=== PATIENT | female | born 1990 | race African-American/Black ===

== ENCOUNTER 2017-03-07 22:17 | Emergency (ER) | payer OTHER ==
[~2017-03-07] VITALS: Ht 165.1 cm; Wt 61.2 kg
[~2017-03-07 22:17] MED LIST: HYDR-3326 PO
[2017-03-07 22:40] VITALS: BP 104/65
[2017-03-07] MEDS ORDERED: LIDOCAINE VISCOUS 2% UD 15 ML UDC ONE (23:56)
[2017-03-08] MEDS ORDERED: LIDOCAINE VISCOUS 2% UD 15 ML UDC MM ONE
== END 2017-03-08 00:05 | disposition home or self-care (01) ==
LOC: ER 22:21
DX: J06.9 Acute upper respiratory infection, unspecified (principal); J45.909 Unspecified asthma, uncomplicated
CPT/HCPCS: 99283; A4606; Z7610

== ENCOUNTER 2017-04-11 16:08 | Emergency (ER) | payer OTHER ==
[~2017-04-11] VITALS: Ht 165.1 cm; Wt 61.2 kg
[2017-04-11 16:08] VITALS: BP 112/82
[2017-04-11] MEDS ORDERED: KETOROLAC TROMETHAMINE INJ 60 MG/2 ML VIAL IM ONE (16:30)
[2017-04-11] MEDS ORDERED: KETOROLAC TROMETHAMINE INJ 30 MG/ML VIAL ONE (16:37)
== END 2017-04-11 16:47 | disposition home or self-care (01) ==
LOC: ER 16:10
DX: M54.5 Low back pain (principal); J45.909 Unspecified asthma, uncomplicated; Z98.890 Other specified postprocedural states
CPT/HCPCS: 96372; 99283; A4606; J1885; Z7610

== ENCOUNTER 2018-02-02 01:45 | Emergency (ER) | payer MEDICAID, OTHER ==
[~2018-02-02] VITALS: Ht 167.6 cm; Wt 61.2 kg
[~2018-02-02 01:45] MED LIST changes: -HYDR-3326 PO; +HYDR-3974 PO
--- NOTE | 2018-02-02 02:24 | NUR ---
PT BIBSELF C/O MIGRAINE +NAUSEA X 1 DAY. PT AOX3 RR EVEN AND UNLABORED. NO SOB NOTED. NAD NOTED. NO NVD AT THIS TIME. PT GOWNED AND PLACED ON MONITOR WAITING FOR MD SILVERIO.
[2018-02-02] MEDS ORDERED: ONDANSETRON HCL/PF 4 MG/2 ML VIAL ONE (02:49)
[2018-02-02] MEDS ORDERED: HYDROMORPHONE INJ 2 MG/ML DISP.SYRIN IV ONE (03:00)
[2018-02-02] MEDS ORDERED: ONDANSETRON HCL/PF 4 MG/2 ML VIAL IVP ONE (03:00)
[2018-02-02] MEDS ORDERED: HYDROMORPHONE INJ 2 MG/ML DISP.SYRIN ONE ×2 (03:01→04:22)
--- NOTE | 2018-02-02 03:10 | NUR ---
PER MARIANA SANTAMARIA RECEIVED DILAUDID 2MG IV FROM [facility], 1MG DILAUDID WASTED WITH MARIANA DANIEL.
[2018-02-02] MEDS ORDERED: diphenhydrAMINE HCL 50 MG/ML VIAL ONE (04:25)
--- NOTE | 2018-02-02 04:26 | NUR ---
RECEIVED DILAUDID 2MG IV FROM [facility], WASTED 1.5MG IV DILAUDID WITH MARIANA DANIEL. ORDERS TO GIVE IVP DILAUDID 0.5MG
[2018-02-02] MEDS ORDERED: diphenhydrAMINE HCL 50 MG/ML VIAL IV ONE (04:30)
[2018-02-02] MEDS ORDERED: HYDROMORPHONE 1 MG/1 ML DISP.SYRIN IV ONE (04:30)
--- NOTE | 2018-02-02 04:39 | NUR ---
IV removed. Catheter intact and site benign. Pressure and 4x4 applied to site. No bleeding noted. Patient discharged to home in stable condition. Written and verbal after care instructions given. Patient verbalizes understanding of instruction. ambulatory with a steady gait. instructed pt not to drive,. pt verbalize understanding.
[2018-02-02 04:40] VITALS: BP 110/75
== END 2018-02-02 04:40 | disposition home or self-care (01) ==
LOC: ER 01:49
DX: R51 Headache (principal); R11.0 Nausea; J45.909 Unspecified asthma, uncomplicated
CPT/HCPCS: 96374; 96375; 96376; 99284; A4606; J1170 ×2; J1200; J2405; Z7610

== ENCOUNTER 2018-04-13 01:37 | Emergency (ER) | payer OTHER ==
[~2018-04-13] VITALS: Ht 165.1 cm; Wt 61.2 kg
--- NOTE | 2018-04-13 02:15 | NUR ---
PT BB SELF FROM HOME C/O migraine/ throat pain since 8p, -N/V/D, + SENSITIVITY TO LIGHT, -DIZZINESS. PT IS AAOX4. SKIN WNL. RESP EVEN AND UNLABORED. NO S/S OF DISTRESS NOTED. VSS. PT RESTING IN BED. 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
[2018-04-13] MEDS ORDERED: IV NS 0.9% 1,000 ML BAG IV ONE (03:00)
[2018-04-13] MEDS ORDERED: SUMATRIPTAN SUCCINATE 6 MG/0.5 ML VIAL SQ ONE ×2 (03:00→03:06)
[2018-04-13] MEDS ORDERED: METOCLOPRAMIDE HCL 10 MG/2 ML VIAL IV ONE (03:00)
[2018-04-13] MEDS ORDERED: METOCLOPRAMIDE HCL 10 MG/2 ML VIAL ONE (03:06)
--- NOTE | 2018-04-13 04:20 | NUR ---
Patient discharged to home in stable condition. Written and verbal after care instructions given. Patient verbalizes understanding of instruction.IV removed. Catheter intact and site benign. Pressure and 4x4 applied to site. No bleeding noted. VSS upon discharge
[2018-04-13 04:22] VITALS: BP 112/84
== END 2018-04-13 04:24 | disposition home or self-care (01) ==
LOC: ER 01:43
DX: G43.909 Migraine, unspecified, not intractable, without status migrainosus (principal); J45.909 Unspecified asthma, uncomplicated; F10.10 Alcohol abuse, uncomplicated
CPT/HCPCS: A4606; J2765; J3030; J7030; Z7610

== ENCOUNTER 2018-05-15 16:39 | Emergency (ER) | payer OTHER ==
[~2018-05-15] VITALS: Ht 165.1 cm; Wt 59.0 kg
[2018-05-15 17:12] VITALS: BP 108/71
== END 2018-05-15 17:44 | disposition home or self-care (01) ==
LOC: ER 16:43
DX: B37.3 Candidiasis of vulva and vagina (principal); J45.909 Unspecified asthma, uncomplicated; F10.10 Alcohol abuse, uncomplicated; G43.909 Migraine, unspecified, not intractable, without status migrainosus; Z98.890 Other specified postprocedural states; Y90.9 Presence of alcohol in blood, level not specified
CPT/HCPCS: 99283; A4606; Z7610

== ENCOUNTER 2018-12-11 12:34 | Emergency (ER) | payer SELFPAY ==
[~2018-12-11] VITALS: Ht 165.1 cm; Wt 65.8 kg
--- NOTE | 2018-12-11 12:34 | NUR ---
PT BIBSELF C/O DIFFUSE ABDOMINAL PAIN, NAUSEA AND VOMITING SINCE THIS AM; PT AAOX4, RESPIRATIONS EVEN AND UNLABORED, NO SOB, NAD NOTED, VSS, PT ON MONITOR, AWAITING ER PROVIDER EVAL
[2018-12-11] MEDS ORDERED: ONDANSETRON HCL/PF 4 MG/2 ML VIAL IVP ONE (13:00)
[2018-12-11] MEDS ORDERED: HYDROMORPHONE INJ 2 MG/ML DISP.SYRIN IV ONE (13:00)
[2018-12-11] MEDS ORDERED: FAMOTIDINE/PF INJ 20 MG/2 ML VIAL IV ONE ×2 (13:00→13:27)
[2018-12-11] MEDS ORDERED: IV NS 0.9% 1,000 ML BAG IV ONE (13:00)
[2018-12-11 13:13] LABS: BASOPHILS % (AUTO) 0.2 % (0.0-2.0); EOSINOPHILS % (AUTO) 0.6 % (0.0-6.0); HEMATOCRIT 43 % (33-45); HEMOGLOBIN 14.7 g/dL (11.5-14.8); LYMPHOCYTES # (AUTO) 0.7 /CMM (0.8-4.8); LYMPHOCYTES % (AUTO) 5.8 % (20.0-44.0); MEAN CORPUSCULAR HGB CONC 34 g/dl (31.0-36.0); MEAN CORPUSCULAR VOLUME 79 fL (82-100); MONOCYTES # (AUTO) 0.6 /CMM (0.1-1.30); MONOCYTES % (AUTO) 5.4 % (2.0-12.0); NEUTROPHILS # (AUTO) 10.3 /CMM (1.8-8.9); PLATELET COUNT (AUTO) 192 /CMM (150-450); RED BLOOD CELL COUNT(AUTO) 5.46 MIL/uL (4.0-5.2); WHITE BLOOD COUNT (AUTO) 11.7 K/uL (4.3-11.0)
[2018-12-11 13:20] LABS: CARBON DIOXIDE 28 mmol/L (21-32); CHLORIDE 105 mmol/L (98-107); POTASSIUM 4.1 mmol/L (3.5-5.1); SODIUM SERUM 137 mmol/L (136-145)
[2018-12-11 13:21] LABS: CALCIUM, SERUM 8.4 mg/dL (8.5-10.1); CREATININE 0.7 mg/dL (0.6-1.3); GLUCOSE 87 mg/dL (74-106); UREA NITROGEN, BLOOD 12 mg/dL (7-18)
[2018-12-11 13:24] LABS: APPEARANCE,URINE Clear (CLEAR); BILIRUBIN,URINE Negative (NEGATIVE); BLOOD, URINE Small Ery/uL (NEGATIVE); COLOR,URINE Yellow (YELLOW); KETONES,URINE Negative (NEGATIVE); LEUKOCYTE ESTERASE ,URINE Trace (NEGATIVE); NITRITE, URINE Negative (NEGATIVE); PROTEIN,URINE Trace mg/dl (NEGATIVE); UGLUCOSE Negative (NEGATIVE); UROBILINOGEN,URINE 0.2 EU/dL (0.2)
[2018-12-11] MEDS ORDERED: ONDANSETRON HCL/PF 4 MG/2 ML VIAL ONE (13:26)
[2018-12-11] MEDS ORDERED: HYDROMORPHONE INJ 2 MG/ML DISP.SYRIN ONE (13:27)
[2018-12-11 13:30] LABS: BACTERIA,URINE Few /HPF (None Seen)
[2018-12-11 13:31] LABS: SQUAMOUS EPITHELIAL CELL,UR Few /HPF (None Seen)
[2018-12-11 13:35] LABS: ALANINE AMINOTRANSFERASE 18 U/L (12-78); ALBUMIN 3.9 g/dL (3.4-5.0); ALKALINE PHOSPHATASE 80 U/L (46-116); ASPARTATE AMINOTRANSFERASE 16 U/L (15-37); BILIRUBIN,DIRECT 0.2 mg/dL (0.0-0.2); BILIRUBIN,TOTAL 0.8 mg/dL (0.2-1.0); LIPASE 104 U/L (73-393); TOTAL PROTEIN, SERUM 7.5 g/dL (6.4-8.2)
--- NOTE | 2018-12-11 13:45 | NUR ---
pt back from ct
--- NOTE | 2018-12-11 13:47 | NUR ---
DILAUDID 2MG IVP GIVEN, AVAILABLE MED DILAUDID 4MG, WASTED 2MG WITH MARIANA TORRE
[2018-12-11] MEDS ORDERED: KETOROLAC TROMETHAMINE INJ 30 MG/ML VIAL ONE (14:34)
[2018-12-11 14:41] VITALS: BP 110/66
--- NOTE | 2018-12-11 14:41 | NUR ---
Patient discharged to home in stable condition. Written and verbal after care instructions given. Patient verbalizes understanding of instruction. IV removed. Catheter intact and site benign. Pressure and 4x4 applied to site. No bleeding noted.
[2018-12-11] MEDS ORDERED: KETOROLAC TROMETHAMINE INJ 30 MG/ML VIAL IV ONE (15:00)
== END 2018-12-11 14:56 | disposition home or self-care (01) ==
LOC: ER 12:38
DX: R10.13 Epigastric pain (principal); R10.11 Right upper quadrant pain; R11.10 Vomiting, unspecified; J45.909 Unspecified asthma, uncomplicated; G43.909 Migraine, unspecified, not intractable, without status migrainosus; Z98.890 Other specified postprocedural states
CPT/HCPCS: 36415; 80048-TC; 80076-TC; 81000-TC; 83690-TC; 84484-TC; 84702-TC; 84703-TC; 85025-TC; 85730-TC; J1170; J1885; J2405; J3490; J7030

== ENCOUNTER 2019-02-13 22:49 | Emergency (ER) | payer MEDICAID ==
[~2019-02-13] VITALS: Ht 165.1 cm; Wt 70.8 kg
--- NOTE | 2019-02-14 00:05 | NUR ---
BIBSELF FROM HOME C/O LOWER ABD PAIN; PT AAOX4, PT ON MONITOR, VSS, NAD NOTED, PENDING MD SILVERIO
[2019-02-14] MEDS: HYDROCODONE/APAP 5/325MG 1 EACH TABLET PO ONE (01:00)
[2019-02-14] MEDS: LORAZEPAM 1 MG TABLET PO ONE (01:00)
[2019-02-14] MEDS ORDERED: HYDROCODONE/APAP 5/325MG 1 EACH TABLET ONE (01:01)
[2019-02-14] MEDS ORDERED: LORAZEPAM 1 MG TABLET ONE (01:01)
[2019-02-14 02:25] VITALS: BP 110/65
== END 2019-02-14 02:29 | disposition home or self-care (01) ==
LOC: ER 22:53
DX: R10.2 Pelvic and perineal pain (principal); F41.9 Anxiety disorder, unspecified; G43.909 Migraine, unspecified, not intractable, without status migrainosus; J45.909 Unspecified asthma, uncomplicated; F10.10 Alcohol abuse, uncomplicated; Y90.9 Presence of alcohol in blood, level not specified; Z98.890 Other specified postprocedural states
CPT/HCPCS: 76856-TC

== ENCOUNTER 2019-09-26 11:16 | Emergency (ER) | payer MEDICAID, OTHER ==
[~2019-09-26] VITALS: Ht 165.1 cm; Wt 61.2 kg
--- NOTE | 2019-09-26 11:25 | NUR ---
"RIGHT SIDED ABDOMINAL PAIN SINCE THIS MORNING ASSOCIATED WITH NAUSEA/ VOMITING AND DIARRHEA" pt aaox4, -sob, nad noted, vss ,pending md crawford
[2019-09-26] MEDS ORDERED: ONDANSETRON HCL/PF 4 MG/2 ML VIAL ONE (13:26)
[2019-09-26 13:29] LABS: BASOPHILS % (AUTO) 0.5 % (0.0-2.0); EOSINOPHILS % (AUTO) 0.7 % (0.0-6.0); HEMATOCRIT 44 % (33-45); LYMPHOCYTES # (AUTO) 1.8 /CMM (0.8-4.8); LYMPHOCYTES % (AUTO) 25.1 % (20.0-44.0); MEAN CORPUSCULAR HGB CONC 34 g/dl (31.0-36.0); MEAN CORPUSCULAR VOLUME 80 fL (82-100); MONOCYTES # (AUTO) 0.6 /CMM (0.1-1.30); MONOCYTES % (AUTO) 7.6 % (2.0-12.0); NEUTROPHILS # (AUTO) 4.8 /CMM (1.8-8.9); NEUTROPHILS % (AUTO) 66.1 % (43.0-81.0); PLATELET COUNT (AUTO) 174 /CMM (150-450); RED BLOOD CELL COUNT(AUTO) 5.54 MIL/uL (4.0-5.2); WHITE BLOOD COUNT (AUTO) 7.2 K/uL (4.3-11.0)
[2019-09-26] MEDS ORDERED: ONDANSETRON HCL/PF 4 MG/2 ML VIAL IVP ONE (13:30)
[2019-09-26] MEDS ORDERED: IV NS 0.9% 1,000 ML BAG IV ONE (13:30)
[2019-09-26 13:38] LABS: CALCIUM, SERUM 8.7 mg/dL (8.5-10.1); CREATININE 0.7 mg/dL (0.6-1.3); POTASSIUM 3.5 mmol/L (3.5-5.1)
[2019-09-26 13:43] LABS: ALBUMIN 4.2 g/dL (3.4-5.0); BILIRUBIN,DIRECT 0.2 mg/dL (0.0-0.2); BILIRUBIN,TOTAL 0.8 mg/dL (0.2-1.0); TOTAL PROTEIN, SERUM 7.8 g/dL (6.4-8.2)
[2019-09-26 13:51] LABS: APPEARANCE,URINE Clear (CLEAR); BILIRUBIN,URINE Negative (NEGATIVE); BLOOD, URINE Trace-intact Ery/uL (NEGATIVE); COLOR,URINE Yellow (YELLOW); KETONES,URINE Negative (NEGATIVE); LEUKOCYTE ESTERASE ,URINE Negative (NEGATIVE); NITRITE, URINE Negative (NEGATIVE); PROTEIN,URINE Trace mg/dl (NEGATIVE); UGLUCOSE Negative (NEGATIVE); UROBILINOGEN,URINE 0.2 EU/dL (0.2)
[2019-09-26] MEDS ORDERED: KETOROLAC TROMETHAMINE INJ 30 MG/ML VIAL ONE (13:51)
[2019-09-26] MEDS ORDERED: LORAZEPAM INJ 2 MG/ML VIAL ONE (13:51)
[2019-09-26 13:52] LABS: BACTERIA,URINE Few /HPF (None Seen); SQUAMOUS EPITHELIAL CELL,UR Few /HPF (None Seen); WBC,URINE 0-2 /HPF (0-3)
[2019-09-26] MEDS ORDERED: LORAZEPAM INJ 2 MG/ML VIAL IV ONE (14:00)
[2019-09-26] MEDS ORDERED: KETOROLAC TROMETHAMINE INJ 30 MG/ML VIAL IV ONE (14:00)
[2019-09-26] MEDS ORDERED: TAMSULOSIN 0.4 MG CAP.SR.24H PO ONE (16:00)
[2019-09-26] MEDS ORDERED: TAMSULOSIN 0.4 MG CAP.SR.24H ONE (16:15)
[2019-09-26 16:19] VITALS: BP 120/60
--- NOTE | 2019-09-26 16:19 | NUR ---
Patient discharged to home in stable condition. Written and verbal after care instructions given. Patient verbalizes understanding of instruction.IV removed. Catheter intact and site benign. Pressure and 4x4 applied to site. No bleeding noted.
== END 2019-09-26 16:20 | disposition home or self-care (01) ==
LOC: ER 11:18
DX: R10.31 Right lower quadrant pain (principal); R11.2 Nausea with vomiting, unspecified; E86.0 Dehydration; R31.9 Hematuria, unspecified; G43.909 Migraine, unspecified, not intractable, without status migrainosus; J45.909 Unspecified asthma, uncomplicated; F10.10 Alcohol abuse, uncomplicated; Z98.890 Other specified postprocedural states; Z30.430 Encounter for insertion of intrauterine contraceptive device; Z79.899 Other long term (current) drug therapy
CPT/HCPCS: 36415; 76770; 76856; 80048; 80076; 81001; 84703; 85025; 96361; 96374; 96375; 99284; J1885; J2060; J2405; J7030; 81000-TC

== ENCOUNTER 2020-05-05 20:23 | Emergency (ER) | payer OTHER ==
[~2020-05-05] VITALS: Ht 165.1 cm; Wt 61.2 kg
--- NOTE | 2020-05-05 20:50 | NUR ---
URINE COLLECTED AND SENT TO LAB
[2020-05-05 21:07] LABS: APPEARANCE,URINE Clear (CLEAR); BILIRUBIN,URINE SMALL (NEGATIVE); BLOOD, URINE Small Ery/uL (NEGATIVE); COLOR,URINE Yellow (YELLOW); KETONES,URINE 15 (NEGATIVE); LEUKOCYTE ESTERASE ,URINE Negative (NEGATIVE); NITRITE, URINE Negative (NEGATIVE); PROTEIN,URINE Negative (NEGATIVE); UGLUCOSE Negative (NEGATIVE)
[2020-05-05] MEDS ORDERED: diphenhydrAMINE HCL 50 MG/ML VIAL ONE (21:23)
[2020-05-05] MEDS ORDERED: METOCLOPRAMIDE HCL 10 MG/2 ML VIAL ONE (21:23)
[2020-05-05] MEDS ORDERED: diphenhydrAMINE HCL 50 MG/ML VIAL IV ONE (21:30)
[2020-05-05] MEDS ORDERED: METOCLOPRAMIDE HCL 10 MG/2 ML VIAL IV ONE (21:30)
[2020-05-05] MEDS ORDERED: IV NS 0.9% 1,000 ML BAG IV ONE (21:30)
[2020-05-05 21:32] LABS: BASOPHILS % (AUTO) 0.4 % (0.0-2.0); EOSINOPHILS % (AUTO) 0.5 % (0.0-6.0); HEMATOCRIT 40 % (33-45); HEMOGLOBIN 13.7 g/dL (11.5-14.8); LYMPHOCYTES # (AUTO) 2.1 /CMM (0.8-4.8); LYMPHOCYTES % (AUTO) 21.7 % (20.0-44.0); MEAN CORPUSCULAR HGB CONC 34 g/dl (31.0-36.0); MEAN CORPUSCULAR VOLUME 80 fL (82-100); MONOCYTES # (AUTO) 0.8 /CMM (0.1-1.30); MONOCYTES % (AUTO) 7.9 % (2.0-12.0); NEUTROPHILS # (AUTO) 6.8 /CMM (1.8-8.9); NEUTROPHILS % (AUTO) 69.5 % (43.0-81.0); PLATELET COUNT (AUTO) 178 /CMM (150-450); RED BLOOD CELL COUNT(AUTO) 5.04 MIL/uL (4.0-5.2); WHITE BLOOD COUNT (AUTO) 9.8 K/uL (4.3-11.0)
[2020-05-05 21:41] LABS: CALCIUM, SERUM 8.7 mg/dL (8.5-10.1); CREATININE 0.8 mg/dL (0.6-1.3); POTASSIUM 3.2 mmol/L (3.5-5.1)
[2020-05-05 21:47] LABS: ALBUMIN 3.6 g/dL (3.4-5.0); BILIRUBIN,DIRECT 0.2 mg/dL (0.0-0.2); BILIRUBIN,TOTAL 1.2 mg/dL (0.2-1.0); TOTAL PROTEIN, SERUM 6.7 g/dL (6.4-8.2)
[2020-05-05 21:48] LABS: BACTERIA,URINE Rare /HPF (None Seen); SQUAMOUS EPITHELIAL CELL,UR Few /HPF (None Seen); WBC,URINE NONE SEEN /HPF (0-3)
[2020-05-05] MEDS ORDERED: POTASSIUM CHLORIDE 20 MEQ TAB.PRT.SR PO ONE ×2 (22:00→22:05)
--- NOTE | 2020-05-05 22:44 | NUR ---
IV removed. Catheter intact and site benign. Pressure and 4x4 applied to site. No bleeding noted. Patient discharged to home in stable condition. Written and verbal after care instructions given. Patient verbalizes understanding of instruction AND RX. PT AMBULATED OUT TO THE LOBBY WITH A STEADY GAIT. VSS.
[2020-05-05 22:51] VITALS: BP 112/74
== END 2020-05-05 22:54 | disposition home or self-care (01) ==
LOC: ER 20:25
DX: R11.2 Nausea with vomiting, unspecified (principal); F12.90 Cannabis use, unspecified, uncomplicated; E87.6 Hypokalemia; E80.4 Gilbert syndrome; G43.909 Migraine, unspecified, not intractable, without status migrainosus; J45.909 Unspecified asthma, uncomplicated; Z98.890 Other specified postprocedural states
CPT/HCPCS: 36415; 80048; 80076; 81001; 83690; 84703; 85025; 96361; 96374; 96375; 99284; J1200; J2765; J7030; 81000-TC

== ENCOUNTER 2022-11-07 13:03 | Emergency (ER) | payer OTHER ==
[~2022-11-07] VITALS: Ht 167.6 cm; Wt 72.6 kg
--- NOTE | 2022-11-07 14:00 | NUR ---
BIBS C/O FLU SX OF SORETHROAT/NAUSEA AND VOMITING X 2 DAYS. AMBULATORY, PLACED ON BED, BREATHING EVEN AND UNLABORED SATURATING AT 100%RA.
[2022-11-07] MEDS ORDERED: ACETAMINOPHEN 325 MG TABLET PO ONE (14:30)
[2022-11-07] MEDS ORDERED: ACETAMINOPHEN 325 MG TABLET ONE (14:30)
--- NOTE | 2022-11-07 14:34 | NUR ---
SWAB FOR CIVID19 AND RAPID INFLUENZA SENT TO LAB
[2022-11-07] MEDS ORDERED: ONDANSETRON HCL/PF - ER 4 MG/2 ML VIAL IV ONE (15:00)
[2022-11-07] MEDS ORDERED: ALBUTEROL FS 2.5 MG/3 ML VIAL.NEB CONTNEB ONE (15:00)
[2022-11-07] MEDS ORDERED: IV NS 0.9% 1,000 ML IV ONE (15:00)
[2022-11-07] MEDS ORDERED: predniSONE 20 MG TABLET PO ONE (15:00)
[2022-11-07] MEDS ORDERED: IPRATROPIUM NEB FS 0.5 MG/2.5 ML AMPUL.NEB NEB ONE (15:00)
--- NOTE | 2022-11-07 15:06 | NUR ---
BLOOD DRAWN AND SENT TO LAB
[2022-11-07] MEDS ORDERED: ONDANSETRON HCL/PF 4 MG/2 ML VIAL ONE (15:10)
[2022-11-07] MEDS ORDERED: predniSONE 20 MG TABLET ONE (15:11)
[2022-11-07 15:21] LABS: BASOPHILS % (AUTO) 0.3 % (0.0-2.0); EOSINOPHILS % (AUTO) 0.2 % (0.0-6.0); HEMATOCRIT 43 % (33-45); HEMOGLOBIN 14.5 g/dL (11.5-14.8); LYMPHOCYTES # (AUTO) 0.8 K/uL (0.8-4.8); LYMPHOCYTES % (AUTO) 18.3 % (20.0-44.0); MEAN CORPUSCULAR HGB CONC 34 g/dl (31.0-36.0); MEAN CORPUSCULAR VOLUME 78 fL (82-100); MONOCYTES # (AUTO) 0.8 K/uL (0.1-1.30); MONOCYTES % (AUTO) 17.8 % (2.0-12.0); NEUTROPHILS # (AUTO) 2.9 K/uL (1.8-8.9); NEUTROPHILS % (AUTO) 63.4 % (43.0-81.0); PLATELET COUNT (AUTO) 159 K/uL (150-450); RED BLOOD CELL COUNT(AUTO) 5.52 MIL/uL (4.0-5.2); WHITE BLOOD COUNT (AUTO) 4.6 K/uL (4.3-11.0)
[2022-11-07] MEDS ORDERED: ALBUTEROL FS 2.5 MG/0.5 ML VIAL.NEB ONE (15:30)
[2022-11-07] MEDS ORDERED: IPRATROPIUM NEB FS 0.5 MG/2.5 ML AMPUL.NEB ONE (15:31)
[2022-11-07 15:39] LABS: CALCIUM, SERUM 8.2 mg/dL (8.5-10.1); CREATININE 0.8 mg/dL (0.6-1.3); POTASSIUM 3.9 mmol/L (3.5-5.1)
[2022-11-07 15:45] LABS: ALBUMIN 3.6 g/dL (3.4-5.0); BILIRUBIN,DIRECT 0.2 mg/dL (0.0-0.2); BILIRUBIN,TOTAL 0.5 mg/dL (0.2-1.0); TOTAL PROTEIN, SERUM 7.5 g/dL (6.4-8.2)
[2022-11-07] MEDS ORDERED: ONDA4TAB5 PO (16:17)
[2022-11-07] MEDS ORDERED: ALBU6.7H9 INH (16:17)
[2022-11-07 16:37] VITALS: BP 116/80
[2022-11-08 04:54] LABS: BAND % (MANUAL) 1 % (0.0-5.0); NEUTROPHILS % (MANUAL) 64 (42-76)
[2022-11-08 04:55] LABS: BASOPHILS % (MANUAL) 0 % (0.0-2.0); EOSINOPHILS % (MANUAL) 0 % (0-4); LYMPHOCYTES % (MANUAL) 21 % (16-48); MONOCYTES % (MANUAL) 14 % (0-11.0)
== END 2022-11-07 16:38 | disposition home or self-care (01) ==
LOC: ER 13:08
DX: J10.1 Influenza due to other identified influenza virus with other respiratory manifestations (principal); J45.909 Unspecified asthma, uncomplicated; Z20.822 Contact with and (suspected) exposure to COVID-19
CPT/HCPCS: 99284; 96374; 71045; 96361; 87426; 87804; 85025; 80048; 83690; 80076; 36415; 94640; 85007; J7512; J2405; C9803

== ENCOUNTER 2023-07-17 18:54 | Emergency (ER) | payer OTHER ==
[~2023-07-17] VITALS: Ht 170.2 cm; Wt 68.9 kg
[~2023-07-17 18:54] MED LIST changes: +ALBU6.7H9 INH; +ONDA4TAB5 PO
[2023-07-17 20:10] LABS: APPEARANCE,URINE CLEAR (CLEAR); BILIRUBIN,URINE NEGATIVE (NEGATIVE); BLOOD, URINE TRACE-INTA Ery/uL (NEGATIVE); COLOR,URINE YELLOW (YELLOW); KETONES,URINE 1+ mg/dL (NEGATIVE); LEUKOCYTE ESTERASE ,URINE TRACE (NEGATIVE); NITRITE, URINE NEGATIVE (NEGATIVE); PROTEIN,URINE TRACE mg/dl (NEGATIVE); UGLUCOSE NEGATIVE (NEGATIVE); UROBILINOGEN,URINE 0.2 EU/dL (0.2)
[2023-07-17 20:17] LABS: MUCUS,URINE Moderate /LPF (None Seen); SQUAMOUS EPITHELIAL CELL,UR 21-50 /HPF (None Seen)
[2023-07-17 20:18] LABS: ADD URINE CULTURE YES; BACTERIA,URINE 2+ /HPF (None Seen)
[2023-07-17] MEDS ORDERED: CEFTRIAXONE 500 MG VIAL ONE (20:54)
[2023-07-17] MEDS ORDERED: DOXYCYCLINE HYCLATE (100 MG) 100 MG TABLET ONE (20:55)
[2023-07-17] MEDS ORDERED: LIDOCAINE /MPF 1% VIAL 5 ML VIAL ONE (20:55)
[2023-07-17] MEDS ORDERED: CEFTRIAXONE 500 MG VIAL IM ONE (21:00)
[2023-07-17] MEDS ORDERED: DOXYCYCLINE HYCLATE (100 MG) 100 MG TABLET PO ONE (21:00)
[2023-07-17] MEDS ORDERED: DOXY-326 PO (23:19)
[2023-07-17 23:26] VITALS: BP 118/84; TEMP 98.2; O2SAT 100
[2023-07-20 06:07] LABS: CHLAMYDIA TRACHOMATIS NAA Negative (Negative); NEISSERIA GONORRHOEAE NAA Negative (Negative)
== END 2023-07-17 23:20 | disposition home or self-care (01) ==
LOC: ER 18:54
DX: N39.0 Urinary tract infection, site not specified (principal); A64 Unspecified sexually transmitted disease; R10.2 Pelvic and perineal pain; G43.909 Migraine, unspecified, not intractable, without status migrainosus; J45.909 Unspecified asthma, uncomplicated
CPT/HCPCS: 99284; 96372; 87086; 81001; 87210; 87491; 87591; J0696; J3490; A6403